=== PATIENT | male | born 1995 | race African-American/Black ===

== ENCOUNTER 2021-03-23 09:14 | Emergency (ER) | payer BC, MEDICAID ==
[~2021-03-23] VITALS: Ht 198.1 cm; Wt 130.0 kg
[~2021-03-23 09:14] MED LIST: ALBU05; OMEP40CA20 PO; TRAM50TA PO
[2021-03-23] MEDS ORDERED: KETOROLAC 30MG/ML VIAL IV ONE (12:45)
[2021-03-23] MEDS ORDERED: SILVER SULFADIAZINE 1% CREAM 25GM TOP ONE (15:00)
[2021-03-23] MEDS: MORPHINE SULFATE 10MG/5ML ORAL SOLN UDC PO PRN ×2 (15:31→17:00)
[2021-03-23] MEDS ORDERED: MORPHINE SULFATE 10MG/5ML ORAL SOLN UDC PO PRN (16:45)
[2021-03-23 17:16] VITALS: BP 196/136
== END 2021-03-23 17:59 | disposition short-term general hospital (02) ==
LOC: ER 09:14
DX: T23.252A Burn of second degree of left palm, initial encounter (principal); T23.251A Burn of second degree of right palm, initial encounter; T23.272A Burn of second degree of left wrist, initial encounter; X18.XXXA Contact with other hot metals, initial encounter; Y93.89 Activity, other specified; Y92.018 Other place in single-family (private) house as the place of occurrence of the external cause
CPT/HCPCS: 16020; 96374; 99285; J1885

== ENCOUNTER 2022-01-17 14:38 | Emergency (ER) | payer MEDICAID ==
[~2022-01-17] VITALS: Ht 172.7 cm; Wt 98.0 kg
[2022-01-17 14:56] VITALS: BP 169/100
[2022-01-17] MEDS ORDERED: CYCLOBENZAPRINE 10MG TABLET PO ONE (19:00)
[2022-01-17] MEDS ORDERED: KETOROLAC 30MG/ML VIAL IM ONE (19:00)
[2022-01-17] MEDS ORDERED: NAPR-1176 MT (19:01)
[2022-01-17] MEDS ORDERED: CYCL10TA21 MT (19:01)
[2022-01-17] MEDS ORDERED: LIDO700A30 TP (19:01)
== END 2022-01-17 19:20 | disposition home or self-care (01) ==
LOC: ER 14:38
DX: S13.4XXA Sprain of ligaments of cervical spine, initial encounter (principal); M54.50 Low back pain, unspecified; R51.9 Headache, unspecified; R03.0 Elevated blood-pressure reading, without diagnosis of hypertension; V43.54XA Car driver injured in collision with van in traffic accident, initial encounter; Y93.89 Activity, other specified; Y92.488 Other paved roadways as the place of occurrence of the external cause
CPT/HCPCS: 96372; 99283; J1885